=== PATIENT | male | born 1980 | race African-American/Black ===

== ENCOUNTER 2017-08-01 09:50 | Inpatient (IN) ==
[2017-08-01 10:20] LABS: Basophils % 0.5 % (0.0-0.8); Eosinophils # 0.3 10*3/uL (0.0-0.87); Eosinophils % 3.9 % (0.00-10.9); Hematocrit 47.8 VOL% (42.0-52.0); Hemoglobin 16.4 GM/DL (14.0-18.0); Immature Granulocytes % 0.2 %; Immature Granulocytes Absolute 0.02 #; Lymphocytes # 2.2 10*3/uL (1.4-4.0); Lymphocytes % 25.3 % (21.2-54.2); Mean Corpuscular HGB Conc 34.3 GM/DL (32-36); Mean Corpuscular Hemoglobin 25 PG (27-34); Mean Corpuscular Volume 72.3 FL (87-102); Mean Platelet Volume 11.4 FL (9.6-12.0); Monocytes # 0.6 10*3/uL (0.11-0.8); Monocytes % 7.4 % (1.7-12.7); Neutrophils # 5.4 10*3/uL (1.4-7.4); Neutrophils % 62.7 % (38.7-73.9); Platelet Count 223 T/CUMM (130-400); Red Blood Count 6.61 MC/CUMM (3.8-5.5); Red Cell Distribution Width 16.1 % (9.3-17.3); White Blood Count 8.6 T/CUMM (4-12)
[2017-08-01 10:25] LABS: PT Patient Result 10.6 SECS; Partial Thromboplastin Time 25.7 SECS (0-40)
[2017-08-01 10:32] LABS: Apearance,Urine CLEAR (Clear); Bilirubin,Urine Negative (Negative); Blood, Urine Negative (Negative); Glucose,Urine (UA) Negative (Negative); Ketones,Urine Negative (Negative); Mucus,Urine Occasional /LPF (Occasional); Nitrite,Urine Negative (Negative); Protein,Urine Negative; RBC,Urine 1 /HPF (0-4); Squamous Epithelial Cell,Urine Occasional /HPF (0-10); Urine Color Yellow (Yellow); Urine Specific Gravity 1.014 (1.001-1.035); Urine Urobilinogen < 2.0 EU/DL (0.2-1.0)
[2017-08-01 10:35] LABS: Barbiturates Screen,Urine Negative (Negative); Benzodiazepines Screen,Urine Negative (Negative); Cannabinoid Screen,Urine Negative (Negative); Opiate Screen,Urine Negative (Negative); Phencyclidine Screen,Urine Negative (Negative)
[2017-08-01 10:40] LABS: Albumin 4.2 G/DL (3.4-5.0); Bilirubin,Total 0.7 MG/DL (0.2-1.0); Calcium 9.4 MG/DL (8.5-10.1); Osmolality,Calculated 273.8 MOS/KG (273-304); Potassium 4.1 MMOL/L (3.5-5.1); Total Protein 8.4 G/DL (6.4-8.3); Troponin I Only 0.028 NG/ML (0.00-0.045)
[2017-08-01] MEDS ORDERED: LABETALOL 20 MG/4 ML SYRINGE IV ONE (10:45)
[2017-08-01] MEDS ORDERED: LABETALOL 20 MG/4 ML SYRINGE IV STA (11:18)
[2017-08-01] MEDS ORDERED: ONDANSETRON 4 MG/2 ML VIAL IV PRN (13:53)
[2017-08-01] MEDS ORDERED: SODIUM CHLORIDE 0.9% 1,000 ML IV SCH (14:00)
[2017-08-01 15:37] LABS: Risk Ratio 6.49; VLDL CHOLESTEROL 39.2 MG/DL
[2017-08-01] MEDS ORDERED: LABETALOL 20 MG/4 ML SYRINGE IV PRN (16:57)
[2017-08-01] MEDS: ATORVASTATIN 40 MG TABLET PO SCH (21:26)
[2017-08-01] MEDS: ENOXAPARIN 40 MG/0.4 ML SYRINGE SUBCUT SCH (21:31)
[2017-08-02 05:45] LABS: Basophils % 0.3 % (0.0-0.8); Eosinophils # 0.4 10*3/uL (0.0-0.87); Eosinophils % 3.3 % (0.00-10.9); Hematocrit 47.3 VOL% (42.0-52.0); Hemoglobin 15.5 GM/DL (14.0-18.0); Immature Granulocytes % 0.3 %; Immature Granulocytes Absolute 0.03 #; Lymphocytes # 2.7 10*3/uL (1.4-4.0); Lymphocytes % 24.3 % (21.2-54.2); Mean Corpuscular HGB Conc 32.8 GM/DL (32-36); Mean Corpuscular Hemoglobin 24 PG (27-34); Mean Corpuscular Volume 73.7 FL (87-102); Mean Platelet Volume 10.8 FL (9.6-12.0); Monocytes # 0.9 10*3/uL (0.11-0.8); Monocytes % 8.1 % (1.7-12.7); Neutrophils # 7.2 10*3/uL (1.4-7.4); Neutrophils % 63.7 % (38.7-73.9); Platelet Count 218 T/CUMM (130-400); Red Blood Count 6.42 MC/CUMM (3.8-5.5); White Blood Count 11.3 T/CUMM (4-12)
[2017-08-02 06:21] LABS: Calcium 8.8 MG/DL (8.5-10.1); Osmolality,Calculated 279.5 MOS/KG (273-304); Potassium 4.2 MMOL/L (3.5-5.1)
[2017-08-02] MEDS: ASPIRIN EC 325 MG TABLET PO SCH (08:55)
[2017-08-02] MEDS ORDERED: ASPIRIN EC 81 MG TABLET PO SCH (09:00)
[2017-08-02] MEDS ORDERED: GLUCAGON 1 MG VIAL IM PRN (16:03)
[2017-08-02] MEDS ORDERED: DEXTROSE 50% 25 GM/50 ML VIAL IV PRN (16:03)
[2017-08-02] MEDS: INSULIN LISPRO 100 UNIT/ML SUBCUT SCH ×2 (16:17→22:38)
[2017-08-02] MEDS: NICOTINE 21 MG/24 HR PATCH TRANSDERM SCH (17:04)
[2017-08-02] MEDS: ENOXAPARIN 40 MG/0.4 ML SYRINGE SUBCUT SCH (22:35)
[2017-08-02] MEDS: ATORVASTATIN 40 MG TABLET PO SCH (22:35)
[2017-08-03 05:56] LABS: Basophils % 0.3 % (0.0-0.8); Eosinophils # 0.3 10*3/uL (0.0-0.87); Eosinophils % 2.5 % (0.00-10.9); Hematocrit 46.4 VOL% (42.0-52.0); Hemoglobin 15.3 GM/DL (14.0-18.0); Immature Granulocytes % 0.4 %; Immature Granulocytes Absolute 0.05 #; Lymphocytes # 2.2 10*3/uL (1.4-4.0); Mean Corpuscular Hemoglobin 24 PG (27-34); Mean Corpuscular Volume 73.5 FL (87-102); Mean Platelet Volume 11.4 FL (9.6-12.0); Monocytes # 0.8 10*3/uL (0.11-0.8); Monocytes % 7.4 % (1.7-12.7); Neutrophils % 70.4 % (38.7-73.9); Platelet Count 208 T/CUMM (130-400); Red Blood Count 6.31 MC/CUMM (3.8-5.5); Red Cell Distribution Width 15.1 % (9.3-17.3); White Blood Count 11.3 T/CUMM (4-12)
[2017-08-03 06:23] LABS: Calcium 8.9 MG/DL (8.5-10.1); Osmolality,Calculated 277.8 MOS/KG (273-304); Potassium 3.9 MMOL/L (3.5-5.1)
[2017-08-03] MEDS: INSULIN LISPRO 100 UNIT/ML SUBCUT SCH ×4 (07:49→21:54)
[2017-08-03] MEDS: NICOTINE 21 MG/24 HR PATCH TRANSDERM SCH (08:22)
[2017-08-03] MEDS: ASPIRIN EC 325 MG TABLET PO SCH (08:22)
[2017-08-03] MEDS ORDERED: amLODIPine 5 MG TABLET PO SCH (09:30)
[2017-08-03 10:39] LABS: Protein C Activity Plasma 106 % (70 - 150)
[2017-08-03] MEDS: metFORMIN 500 MG TABLET PO SCH (16:30)
[2017-08-03] MEDS: ATORVASTATIN 40 MG TABLET PO SCH (21:39)
[2017-08-03] MEDS: ENOXAPARIN 40 MG/0.4 ML SYRINGE SUBCUT SCH (21:39)
[2017-08-04] MEDS ORDERED: amLODIPine 10 MG TABLET PO SCH (08:06)
[2017-08-04 08:38] VITALS: BP 161/89
[2017-08-04] MEDS: INSULIN LISPRO 100 UNIT/ML SUBCUT SCH ×2 (08:52→11:48)
[2017-08-04] MEDS: metFORMIN 500 MG TABLET PO SCH (08:53)
[2017-08-04] MEDS: NICOTINE 21 MG/24 HR PATCH TRANSDERM SCH (08:53)
[2017-08-04] MEDS: ASPIRIN EC 325 MG TABLET PO SCH (08:53)
[2017-08-04 17:41] LABS: F5DNA Reviewed By SEE COMMENTS; Factor V Leiden (R506Q) Mutati Negative (Negative)
[2017-08-04 17:41] LABS: PTNT Reviewed By SEE COMMENTS
[2017-08-07 13:46] LABS: Phospholipid Ab IgM, S < 9.4 MPL
== END 2017-08-04 14:35 | disposition home health service (06) | DRG 65 ==
LOC: N.ED 09:50 → N.EDINP 12:46 → N.TELES 16:22
PROVIDERS: ADMIT Internal Medicine; ATTEND Internal Medicine

== ENCOUNTER 2017-08-21 13:10 | Inpatient (IN) ==
[2017-08-21 15:08] LABS: Basophils # 0.1 10*3/uL (0.0-0.2); Basophils % 0.4 % (0.0-0.8); Eosinophils # 0.4 10*3/uL (0.0-0.87); Eosinophils % 3.4 % (0.00-10.9); Hematocrit 43.8 VOL% (42.0-52.0); Hemoglobin 14.3 GM/DL (14.0-18.0); Immature Granulocytes % 0.3 %; Immature Granulocytes Absolute 0.03 #; Lymphocytes # 3.1 10*3/uL (1.4-4.0); Lymphocytes % 27.2 % (21.2-54.2); Mean Corpuscular HGB Conc 32.6 GM/DL (32-36); Mean Corpuscular Hemoglobin 24 PG (27-34); Mean Corpuscular Volume 74.6 FL (87-102); Mean Platelet Volume 11.4 FL (9.6-12.0); Monocytes # 0.9 10*3/uL (0.11-0.8); Monocytes % 7.4 % (1.7-12.7); Neutrophils # 7.1 10*3/uL (1.4-7.4); Neutrophils % 61.3 % (38.7-73.9); Platelet Count 311 T/CUMM (130-400); Red Blood Count 5.87 MC/CUMM (3.8-5.5); Red Cell Distribution Width 13.7 % (9.3-17.3); White Blood Count 11.5 T/CUMM (4-12)
[2017-08-21 15:19] LABS: Alanine Aminotransferase 44 U/L (16-61); Albumin 3.9 G/DL (3.4-5.0); Alkaline Phosphatase 167 U/L (45-117); Aspartate Amino Transferase 39 U/L (0-37); Bilirubin,Total < 0.39 MG/DL (0.2-1.0); Blood Urea Nitrogen 11 MG/DL (7-18); Calcium 9.4 MG/DL (8.5-10.1); Glucose 82 MG/DL (74-106); Osmolality,Calculated 274.5 MOS/KG (273-304); Sodium 139 MMOL/L (136-145); Total Protein 7.9 G/DL (6.4-8.3)
[2017-08-21 15:34] LABS: Apearance,Urine CLEAR (Clear); Bilirubin,Urine Negative (Negative); Blood, Urine Negative (Negative); Glucose,Urine (UA) Negative (Negative); Ketones,Urine Negative (Negative); Mucus,Urine Few /LPF (Occasional); Nitrite,Urine Negative (Negative); Protein,Urine Negative; RBC,Urine <1 /HPF (0-4); Squamous Epithelial Cell,Urine Occasional /HPF (0-10); Urine Color Yellow (Yellow); WBC,Urine 1 /HPF (0-6)
[2017-08-21 15:41] LABS: Barbiturates Screen,Urine Negative (Negative); Benzodiazepines Screen,Urine Negative (Negative); Cannabinoid Screen,Urine Negative (Negative); Opiate Screen,Urine Negative (Negative); Phencyclidine Screen,Urine Negative (Negative)
[2017-08-21] MEDS ORDERED: MAGNESIUM SULF RIDER 2 GM in PREMIX 1 EACH IV STA (15:41)
[2017-08-21] MEDS ORDERED: MAGNESIUM SULF RIDER 50 ML IV ONE (16:19)
[2017-08-21] MEDS ORDERED: ONDANSETRON 4 MG/2 ML VIAL IV PRN (17:37)
[2017-08-21] MEDS ORDERED: DOCUSATE SODIUM 100 MG CAPSULE PO PRN (17:37)
[2017-08-21] MEDS ORDERED: ACETAMINOPHEN 325 MG TABLET PO PRN (17:37)
[2017-08-21] MEDS: ENOXAPARIN 40 MG/0.4 ML SYRINGE SUBCUT SCH (20:42)
[2017-08-21] MEDS: LOSARTAN/HCTZ 50-12.5 MG TABLET PO SCH (20:42)
[2017-08-21] MEDS: ATORVASTATIN 40 MG TABLET PO SCH (20:43)
[2017-08-21 23:09] LABS: Troponin I Only 0.024 NG/ML (0.00-0.045)
[2017-08-21 23:14] LABS: Thyroid Stimulating Hormone 2.52 uIU/ml (0.358-3.74); VLDL CHOLESTEROL 37.4 MG/DL
[2017-08-22 07:03] LABS: Albumin 3.5 G/DL (3.4-5.0); Bilirubin,Total 0.4 MG/DL (0.2-1.0); Calcium 9.1 MG/DL (8.5-10.1); Osmolality,Calculated 280.3 MOS/KG (273-304); Potassium 4.2 MMOL/L (3.5-5.1); Total Protein 6.9 G/DL (6.4-8.3)
[2017-08-22 07:09] LABS: Troponin I Only 0.017 NG/ML (0.00-0.045)
[2017-08-22] MEDS ORDERED: amLODIPine 10 MG TABLET PO SCH (09:00)
[2017-08-22] MEDS: PANTOPRAZOLE 40 MG TABLET PO SCH (10:00)
[2017-08-22] MEDS: ASPIRIN 325 MG TABLET PO SCH (10:00)
[2017-08-22] MEDS: CLOPIDOGREL 75 MG TABLET PO SCH (10:00)
[2017-08-22] MEDS: ENOXAPARIN 40 MG/0.4 ML SYRINGE SUBCUT SCH (21:27)
[2017-08-22] MEDS: LOSARTAN/HCTZ 50-12.5 MG TABLET PO SCH (21:27)
[2017-08-22] MEDS: ATORVASTATIN 40 MG TABLET PO SCH (21:27)
[2017-08-23] MEDS: PANTOPRAZOLE 40 MG TABLET PO SCH (09:05)
[2017-08-23] MEDS: CLOPIDOGREL 75 MG TABLET PO SCH (09:05)
[2017-08-23] MEDS: ASPIRIN 325 MG TABLET PO SCH (09:05)
[2017-08-23] MEDS: metFORMIN 500 MG TABLET PO SCH (17:10)
[2017-08-23] MEDS: ENOXAPARIN 40 MG/0.4 ML SYRINGE SUBCUT SCH (21:53)
[2017-08-23] MEDS: LOSARTAN/HCTZ 50-12.5 MG TABLET PO SCH (21:53)
[2017-08-23] MEDS: ATORVASTATIN 40 MG TABLET PO SCH (21:53)
[2017-08-24 05:22] LABS: Basophils # 0.1 10*3/uL (0.0-0.2); Basophils % 0.6 % (0.0-0.8); Eosinophils # 0.4 10*3/uL (0.0-0.87); Eosinophils % 5.2 % (0.00-10.9); Hematocrit 43.5 VOL% (42.0-52.0); Hemoglobin 14.2 GM/DL (14.0-18.0); Immature Granulocytes % 0.3 %; Immature Granulocytes Absolute 0.02 #; Lymphocytes # 2.9 10*3/uL (1.4-4.0); Lymphocytes % 37.2 % (21.2-54.2); Mean Corpuscular HGB Conc 32.6 GM/DL (32-36); Mean Corpuscular Hemoglobin 24 PG (27-34); Mean Corpuscular Volume 74.4 FL (87-102); Mean Platelet Volume 10.3 FL (9.6-12.0); Monocytes # 0.7 10*3/uL (0.11-0.8); Monocytes % 9.4 % (1.7-12.7); Neutrophils # 3.8 10*3/uL (1.4-7.4); Neutrophils % 47.3 % (38.7-73.9); Platelet Count 289 T/CUMM (130-400); Red Blood Count 5.85 MC/CUMM (3.8-5.5); Red Cell Distribution Width 13.3 % (9.3-17.3); White Blood Count 7.9 T/CUMM (4-12)
[2017-08-24 05:57] LABS: Calcium 9.2 MG/DL (8.5-10.1); Osmolality,Calculated 282.3 MOS/KG (273-304)
[2017-08-24] MEDS ORDERED: ASPIRIN EC 325 MG TABLET PO SCH (09:00)
[2017-08-24] MEDS ORDERED: APIXABAN 5 MG TABLET PO SCH (09:00)
[2017-08-24] MEDS: PANTOPRAZOLE 40 MG TABLET PO SCH (09:19)
[2017-08-24] MEDS: metFORMIN 500 MG TABLET PO SCH (09:19)
[2017-08-24] MEDS ORDERED: AMIODARONE INJ 150 MG in DEXTROSE 5% 100 ML IV ONE (14:00)
[2017-08-24] MEDS ORDERED: AMIODARONE INJ 450 MG in DEXTROSE 5% 241 ML IV SCH (14:10)
[2017-08-24] MEDS: APIXABAN 5 MG TABLET PO SCH ×2 (15:32→21:23)
[2017-08-24] MEDS: glyBURIDE/METFORMIN 5-500 MG TABLET PO SCH (19:12)
[2017-08-24] MEDS: ATORVASTATIN 40 MG TABLET PO SCH (21:23)
[2017-08-24] MEDS: AMIODARONE INJ 450 MG in DEXTROSE 5% 241 ML IV SCH (21:23)
[2017-08-24] MEDS: LOSARTAN/HCTZ 50-12.5 MG TABLET PO SCH (21:23)
[2017-08-25] MEDS ORDERED: AMIODARONE 200 MG TABLET PO SCH (09:00)
[2017-08-25] MEDS: PANTOPRAZOLE 40 MG TABLET PO SCH (09:52)
[2017-08-25] MEDS: APIXABAN 5 MG TABLET PO SCH (09:52)
[2017-08-25] MEDS: glyBURIDE/METFORMIN 5-500 MG TABLET PO SCH ×2 (09:52→17:13)
[2017-08-25] MEDS: AMIODARONE INJ 450 MG in DEXTROSE 5% 241 ML IV SCH (11:03)
[2017-08-25] MEDS ORDERED: NIFEdipine 10 MG CAPSULE PO ONE (16:05)
[2017-08-25 16:51] VITALS: BP 171/93
== END 2017-08-25 17:05 | disposition home or self-care (01) | DRG 57 ==
LOC: N.ED 13:10 → N.EDINP 17:00 → SUATTDRO 17:00 → N.EDINP 18:35 → N.3E 19:27 → N.TELES 08-24 14:51
PROVIDERS: ADMIT Internal Medicine; ATTEND Internal Medicine

== ENCOUNTER 2018-01-22 11:14 | Observation (INO) ==
[2018-01-22] MEDS ORDERED: ASPIRIN 325 MG TABLET PO STA (11:46)
[2018-01-22 12:50] LABS: Basophils % 0.4 % (0.0-0.8); Eosinophils # 0.4 10*3/uL (0.0-0.87); Eosinophils % 4.3 % (0.00-10.9); Hematocrit 40.4 VOL% (42.0-52.0); Hemoglobin 13.2 GM/DL (14.0-18.0); Immature Granulocytes % 0.6 %; Immature Granulocytes Absolute 0.05 #; Lymphocytes # 1.4 10*3/uL (1.4-4.0); Lymphocytes % 15.1 % (21.2-54.2); Mean Corpuscular HGB Conc 32.7 GM/DL (32-36); Mean Corpuscular Hemoglobin 25 PG (27-34); Mean Corpuscular Volume 75.4 FL (87-102); Mean Platelet Volume 10.5 FL (9.6-12.0); Monocytes # 0.5 10*3/uL (0.11-0.8); Monocytes % 5.6 % (1.7-12.7); Neutrophils # 6.7 10*3/uL (1.4-7.4); Platelet Count 223 T/CUMM (130-400); Red Blood Count 5.36 MC/CUMM (3.8-5.5); Red Cell Distribution Width 14.5 % (9.3-17.3)
[2018-01-22 13:08] LABS: Alanine Aminotransferase 63 U/L (16-61); Alkaline Phosphatase 127 U/L (45-117); Aspartate Amino Transferase 39 U/L (0-37); Bilirubin,Total < 0.39 MG/DL (0.2-1.0); Blood Urea Nitrogen 10 MG/DL (7-18); Calcium 8.9 MG/DL (8.5-10.1); Glucose 147 MG/DL (74-106); Osmolality,Calculated 280.4 MOS/KG (273-304); Potassium 4.1 MMOL/L (3.5-5.1); Sodium 140 MMOL/L (136-145); Total Protein 7.5 G/DL (6.4-8.3)
[2018-01-22] MEDS ORDERED: ONDANSETRON 4 MG/2 ML VIAL IV PRN (14:03)
[2018-01-22] MEDS ORDERED: ACETAMINOPHEN 325 MG TABLET PO PRN (14:03)
[2018-01-22] MEDS ORDERED: MAGNESIUM SULF RIDER 4 GM in PREMIX 1 EACH IV PRN (15:06)
[2018-01-22] MEDS ORDERED: MAGNESIUM SULF RIDER 2 GM in PREMIX 1 EACH IV PRN (15:06)
[2018-01-22 15:11] LABS: Apearance,Urine CLEAR (Clear); Bilirubin,Urine Negative (Negative); Blood, Urine Negative (Negative); Glucose,Urine (UA) Negative (Negative); Ketones,Urine Negative (Negative); Mucus,Urine Occasional /LPF (Occasional); Nitrite,Urine Negative (Negative); Protein,Urine Negative; RBC,Urine <1 /HPF (0-4); Urine Color Yellow (Yellow); Urine Specific Gravity 1.011 (1.001-1.035); Urine Urobilinogen < 2.0 EU/DL (0.2-1.0); WBC,Urine <1 /HPF (0-6)
[2018-01-22] MEDS ORDERED: GLUCAGON 1 MG VIAL IM PRN (15:24)
[2018-01-22] MEDS ORDERED: DEXTROSE 50% 25 GM/50 ML VIAL IV PRN (15:24)
[2018-01-22] MEDS: INSULIN LISPRO 100 UNIT/ML SUBCUT SCH ×2 (18:23→22:40)
[2018-01-22] MEDS ORDERED: LOSARTAN/HCTZ 50-12.5 MG TABLET PO SCH (21:00)
[2018-01-22] MEDS ORDERED: APIXABAN 5 MG TABLET PO SCH (21:00)
[2018-01-22] MEDS ORDERED: ATORVASTATIN 40 MG TABLET PO SCH (21:00)
[2018-01-22] MEDS: AMIODARONE 200 MG TABLET PO SCH (22:44)
[2018-01-23 05:50] LABS: Basophils # 0.1 10*3/uL (0.0-0.2); Basophils % 0.7 % (0.0-0.8); Eosinophils # 0.7 10*3/uL (0.0-0.87); Eosinophils % 8.2 % (0.00-10.9); Hematocrit 38.2 VOL% (42.0-52.0); Hemoglobin 12.4 GM/DL (14.0-18.0); Immature Granulocytes % 0.3 %; Immature Granulocytes Absolute 0.03 #; Lymphocytes # 2.9 10*3/uL (1.4-4.0); Lymphocytes % 33.3 % (21.2-54.2); Mean Corpuscular HGB Conc 32.5 GM/DL (32-36); Mean Corpuscular Hemoglobin 24 PG (27-34); Mean Platelet Volume 10.4 FL (9.6-12.0); Monocytes # 0.8 10*3/uL (0.11-0.8); Monocytes % 9.2 % (1.7-12.7); Neutrophils # 4.3 10*3/uL (1.4-7.4); Neutrophils % 48.3 % (38.7-73.9); Platelet Count 207 T/CUMM (130-400); Red Blood Count 5.16 MC/CUMM (3.8-5.5); Red Cell Distribution Width 14.4 % (9.3-17.3); White Blood Count 8.8 T/CUMM (4-12)
[2018-01-23 06:20] LABS: Calcium 8.8 MG/DL (8.5-10.1); Osmolality,Calculated 276.4 MOS/KG (273-304); Potassium 3.9 MMOL/L (3.5-5.1); VLDL CHOLESTEROL 31.2 MG/DL
[2018-01-23 06:21] LABS: Risk Ratio 2.63
[2018-01-23] MEDS ORDERED: PANTOPRAZOLE 40 MG TABLET PO SCH (09:00)
[2018-01-23] MEDS ORDERED: ASPIRIN EC 81 MG TABLET PO SCH (09:00)
[2018-01-23] MEDS: INSULIN LISPRO 100 UNIT/ML SUBCUT SCH ×3 (09:56→15:56)
[2018-01-23] MEDS: AMIODARONE 200 MG TABLET PO SCH (12:16)
[2018-01-23 16:09] VITALS: BP 131/82
== END 2018-01-23 17:12 | disposition home or self-care (01) ==
LOC: EDBD → EDUNIT# → N.EDINP 11:14 → N.ED 11:14 → N.TELEN 14:56